=== PATIENT | male | born 1990 | race Caucasian/White ===

== ENCOUNTER 2022-06-03 06:40 | Emergency (ER) | payer OTHER ==
[2022-06-03] MEDS ORDERED: Acetaminophen 325 MG Tab PO ONE (07:14)
[2022-06-03] MEDS ORDERED: Ibuprofen 400 MG Tab PO ONE (07:14)
[2022-06-03] MEDS ORDERED: Lidocaine 5% 700 MG Patch TOP ONE (07:15)
== END 2022-06-03 09:15 | disposition home or self-care (01) ==
LOC: MW.ED 06:40
DX: M54.6 Pain in thoracic spine (principal); Z72.0 Tobacco use
CPT/HCPCS: 99283; A9270

== ENCOUNTER 2024-01-21 14:48 | Emergency (ER) | payer SELFPAY ==
[2024-01-21] MEDS: Cyclobenzaprine 10 MG Tab PO ONE (15:39)
[2024-01-21] MEDS: Ketorolac 60 MG/2 ML SDV IM ONE (15:39)
[2024-01-21] MEDS: Lidocaine 4% 1 each Patch TOP STA (15:40)
[2024-01-21] MEDS: Gabapentin 300 MG Cap PO ONE (15:47)
[2024-01-21] MEDS: Aspirin 81 MG Tab.Chew PO ONE (16:58)
== END 2024-01-21 17:15 | disposition home or self-care (01) ==
LOC: MW.ED 14:48
DX: M54.6 Pain in thoracic spine (principal); Z75.8 Other problems related to medical facilities and other health care
CPT/HCPCS: 96372; 99283; A9270; J1885